=== PATIENT | female | born 1980 | race Asian ===

== ENCOUNTER 2017-10-17 07:51 | Day surgery (SDC) | payer OTHER ==
[~2017-10-17 07:51] MED LIST: EPHEDrine SULFATE 50 MG/5 ML SYG
[2017-10-17] MEDS ORDERED: LACTATED RINGER'S 1,000 ML IV* (08:00)
[2017-10-17] MEDS: STRONG IODINE 14 ML SOLUTION TOP (08:27)
[2017-10-17] MEDS ORDERED: FENTAnyl 50 MCG/ML VIAL (09:28)
[2017-10-17] MEDS ORDERED: CEFAZOLIN 1 GM INJ (09:28)
[2017-10-17] MEDS ORDERED: PROPOFOL 20 ML (09:28)
[2017-10-17] MEDS ORDERED: MIDAZOLAM 1 MG/ML 2 ML INJ (09:28)
[2017-10-17] MEDS ORDERED: ONDANSETRON 4 MG INJ (10:10)
[2017-10-17] MEDS ORDERED: METOCLOPRAMIDE 10 MG INJ (10:10)
[2017-10-17] MEDS ORDERED: KETOROLAC 30 MG INJ (10:10)
[2017-10-17] MEDS ORDERED: DEXAMETHASONE 4 MG/ML 1 ML INJ (10:10)
[2017-10-17] MEDS ORDERED: FENTAnyl 50 MCG/ML VIAL IV ×3 (10:30)
[2017-10-17] MEDS ORDERED: ONDANSETRON 4 MG INJ IV (10:30)
[2017-10-17] MEDS ORDERED: HYDROmorphONE (0.2 MG/ML) 10ML SYG IV ×3 (10:30)
[2017-10-17] MEDS ORDERED: DIPHENHYDRAMINE 50 MG INJ IV (10:30)
[2017-10-17] MEDS ORDERED: EPHEDrine SULFATE 50 MG/5 ML SYG IV (10:30)
[2017-10-17] MEDS ORDERED: MEPERIDINE 25 MG INJ IV (10:30)
[2017-10-17] MEDS ORDERED: OXYCODONE/ACETAMINOPHEN (5/325) TAB PO (10:30)
[2017-10-17] MEDS ORDERED: METOCLOPRAMIDE 10 MG INJ IV (10:30)
[2017-10-17] MEDS ORDERED: MEPERIDINE 100 MG INJ (10:34)
== END 2017-10-17 12:20 | disposition home or self-care (01) ==
LOC: SDS 07:51
DX: N72 Inflammatory disease of cervix uteri (principal); N87.9 Dysplasia of cervix uteri, unspecified
CPT/HCPCS: 57520; 84703; 88305